=== PATIENT | male | born 1980 | race Caucasian/White ===

== ENCOUNTER → 2022-08-02 | Outpatient (CLI) | payer OTHER ==
--- NOTE | 2022-08-02 10:20 | XR ---
EXAMINATION TYPE: XR chest 2V DATE OF EXAM: 08/02/2022 COMPARISON: None INDICATION: Short of breath TECHNIQUE: Frontal and lateral views of the chest are obtained. FINDINGS: The heart size is normal. The pulmonary vasculature is normal. The lungs are clear. IMPRESSION: 1. No acute pulmonary process.
[2022-08-02 16:05] LABS: Basophils # (A) 0.07 X 10*3/uL (0.00-0.10); Basophils % (A) 1.1 %; Eosinophils # (A) 0.21 X 10*3/uL (0.04-0.35); Eosinophils % (A) 3.3 %; HCT 47.1 % (39.6-50.0); HGB 16.1 g/dL (13.0-17.0); Immature Grans, Automated 0.5 %; Lymphocytes # (A) 1.87 X 10*3/uL (0.90-5.00); Lymphocytes % (A) 29.4 %; MCH 29.5 pg (27.0-32.0); MCHC 34.2 g/dL (32.0-37.0); MCV 86.3 fL (80.0-97.0); Mean Platelet Volume 11.1 fL (9.5-12.2); Monocytes # (A) 0.56 X 10*3/uL (0.20-1.00); Monocytes % (A) 8.8 %; NRBC Per 100 WBC 0 /100 WBCS (0.0-0.0); Neutrophils # (A) 3.61 X 10*3/uL (1.80-7.70); Neutrophils % (A) 56.9 %; Platelet Count 275 X 10*3/uL (140-440); RBC 5.46 X 10*6/uL (4.40-5.60); RDW 12.2 % (11.5-14.5); WBC 6.35 X 10*3/uL (4.50-10.00)
[2022-08-02 16:24] LABS: Erythrocyte Sedimentation Rate 5 mm/Hr (0-15)
[2022-08-02 17:00] LABS: ALT 28 U/L (10-49); AST 23 U/L (14-35); African American GFR (CKD) 96.1 (60.0-200.0); Albumin 4.8 g/dL (3.8-4.9); Albumin/Globulin Ratio 1.85 (1.60-3.17); Alkaline Phosphatase 73 U/L (41-126); BUN/Creat Ratio 13.27 Ratio (12.00-20.00); Blood Urea Nitrogen 14.6 mg/dL (9.0-27.0); Calcium 9.1 mg/dL (8.7-10.3); Carbon Dioxide 23.6 mmol/L (20.0-27.5); Chloride 103 mmol/L (96-109); Creatine Kinase 186 U/L (35-257); Globulin 2.6 g/dL (1.6-3.3); Glucose 128 mg/dL (70-110); Non-African American GFR(CKD) 82.9 (60.0-200.0); Phosphorus 2.4 mg/dL (2.4-5.1); Potassium 4.1 mmol/L (3.5-5.5); Sodium 138 mmol/L (135-145); Total Protein 7.4 g/dL (6.2-8.2)
[2022-08-02 19:30] LABS: Chol/HDL Ratio 8.73 Ratio; LDL Cholesterol,Calculated 176.8 mg/dL (0.0-131.0)
== END | disposition home or self-care (01) ==
LOC: LABWHC1 09:11
PROVIDERS: ATTEND Internal Medicine
DX: Z00.00 Encounter for general adult medical examination without abnormal findings (principal); I10 Essential (primary) hypertension; E87.8 Other disorders of electrolyte and fluid balance, not elsewhere classified; E78.5 Hyperlipidemia, unspecified; E55.9 Vitamin D deficiency, unspecified; N40.0 Benign prostatic hyperplasia without lower urinary tract symptoms; R06.02 Shortness of breath
CPT/HCPCS: 36415; 71046; 80053; 80061; 82306; 82550; 83735; 84100; 84443; 85025; 85652; 86140

== ENCOUNTER → 2022-10-06 | Outpatient (CLI) | payer OTHER | END | disposition home or self-care (01) | LOC: LABWHC1 10:58 | PROVIDERS: ATTEND Internal Medicine | DX: R73.9 Hyperglycemia, unspecified (principal) | CPT/HCPCS: 36415; 82947; 83036 ==